=== PATIENT | female | born 1995 | race Two or more races ===

== ENCOUNTER 2018-10-28 05:34 | Emergency (ER) | payer OTHER ==
--- NOTE | 2018-10-28 06:54 | ER Document Report ---
ED General - General Chief Complaint: Cold Symptoms Stated Complaint: COLD SYMPTOMS Time Seen by Provider: 10/28/18 06:11 Notes: Patient is a 23-year-old female that presents to the emergency department for chief complaint of sinus congestion and cold symptoms. Patient states that her symptoms started a few days ago, she has had runny nose, congestion, and some sinus pressure, but denies having any pain. 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 She did have a mild cough associated as well. Denies having any fevers, chills, night sweats, nausea, vomiting, abdominal pain, chest pain or difficulty breathing. Past Medical History: Denies chronic medical conditions Past Surgical History: Denies surgical history Social History: Denies tobacco, alcohol or drug use. Family History: Reviewed and noncontributory for presenting illness Allergies: Reviewed, see documented allergy list. REVIEW OF SYSTEMS: Other than noted above, the 12 point review of systems was reviewed with the patient and were negative, all pertinent findings are included in the HPI. PHYSICAL EXAMINATION: Vital signs reviewed, nursing noted reviewed. GENERAL: Well-appearing, well-nourished and in no acute distress. HEAD: Atraumatic, normocephalic. EYES: Eyes appear normal, sclera anicteric, conjunctiva are normal. ENT: Moist mucous membranes. Mild bilateral nasal turbinate injection, posterior pharynx is unremarkable, TMs appear normal bilaterally. NECK: Normal range of motion, supple without lymphadenopathy LUNGS: Breath sounds clear to auscultation bilaterally and equal. No wheezes rales or rhonchi. HEART: Regular rate and rhythm without murmurs EXTREMITIES: Nontender, good range of motion, no pitting or edema. NEUROLOGICAL: No focal neurological deficits. Moves all extremities spontaneously Motor and sensory grossly intact on exam. PSYCH: Normal mood, normal affect. SKIN: Warm, Dry, normal turgor, no rashes or lesions noted on exposed skin TRAVEL OUTSIDE OF THE [place] IN LAST 30 DAYS: No - Related Data Allergies/Adverse Reactions: No Known Allergies Allergy (Unverified 10/28/18 05:40) Past Medical History - Social History Smoking Status: Never Smoker Family History: Reviewed & Not Pertinent Patient has suicidal ideation: No Patient has homicidal ideation: No Renal/ Medical History: Denies: Hx Peritoneal Dialysis Physical Exam - Vital signs Vitals: Temp Pulse Resp BP Pulse Ox 97.7 F 93 18 119/70 96 10/28/18 05:42 10/28/18 05:42 10/28/18 05:42 10/28/18 05:42 10/28/18 05:42 Course - Re-evaluation Re-evalutation: Patient seen and examined vital signs reviewed. Patient was evaluated and treated as appropriate for the patient's presenting symptoms and complaint, with consideration of any critical or life threatening conditions that may be associated with their obtained history and exam as noted above. Patient appeared well on exam, will discharge her home with a prescription for Flonase, advised [id number] Mucinex or Sudafed, as well and to follow-up with her primary care physician. Plan of care was discussed with the patient at this point, after careful consideration I feel that that patient can be discharged from the emergency department, the patient was educated treatments and reasons to return to the emergency department based on their presumed diagnosis as noted above, they were advised to followup with a primary care physician in 2-3 days. Patient was agreeable to plan of care. *Note is created using voice recognition software and may contain spelling, syntax or grammatical errors. - Vital Signs Vital signs: Temp Pulse Resp BP Pulse Ox 97.5 F 87 16 117/69 100 10/28/18 07:02 10/28/18 07:02 10/28/18 07:02 10/28/18 07:02 10/28/18 07:02 Discharge - Discharge Clinical Impression: URI (upper respiratory infection) Qualifiers: URI type: unspecified URI Qualified Code(s): J06.9 - Acute upper respiratory infection, unspecified Condition: Stable Disposition: HOME, SELF-CARE Instructions: Upper Respiratory Illness ([facility]) Additional Instructions: Please take medications as prescribed, you should take [id number] Sudafed, to help with some of your nasal congestion. Prescriptions: Fluticasone Propionate [Flonase Nasal [place] 50 Mcg/[place] 16 gm] 1 spray NASL Q12 #1 inhaler Forms: Return to Work Referrals: SHAWN SHERMAN MD [ACTIVE STAFF] - Follow up in 3-5 days (or your primary care. )
[2018-10-28 07:04] VITALS: BP 117/69
== END 2018-10-28 07:04 | disposition home or self-care (01) ==
LOC: ER 05:34
DX: J06.9 Acute upper respiratory infection, unspecified (principal); R09.81 Nasal congestion; R09.89 Other specified symptoms and signs involving the circulatory and respiratory systems; R05 Cough; R51 Headache
CPT/HCPCS: 99283

== ENCOUNTER 2018-12-22 22:52 | Emergency (ER) | payer OTHER ==
[2018-12-22] MEDS ORDERED: ONDANSETRON 4 MG TAB.RAPDIS PO ONE (23:51)
--- NOTE | 2018-12-23 00:05 | ER Document Report ---
HPI - HPI Patient complains to provider of: UTI Time Seen by Provider: 12/22/18 23:46 Onset: This morning Onset/Duration: Waxing and waning Quality of pain: Burning Pain Level: 5 Context: Patient presents complaining of hematuria dysuria and frequency that started today with nausea. Patient denies any back pain or fever. Patient denies any vaginal bleeding or discharge. Associated Symptoms: Nausea. denies: Fever, Vomiting Exacerbated by: Denies Relieved by: Denies Similar symptoms previously: Yes Recently seen / treated by doctor: No - ROS ROS below otherwise negative: Yes Systems Reviewed and Negative: Yes All other systems reviewed and negative - CONSTITUTIONAL Constitutional: DENIES: Fever, Chills - NEURO Neurology: DENIES: Headache - GASTROINTESTINAL Gastrointestinal: REPORTS: Abdominal Pain, Nausea. DENIES: Patient vomiting - URINARY Urinary: REPORTS: Dysuria, Frequency - REPRODUCTIVE Reproductive: DENIES: :, Abnormal bleeding / discharge - MUSCULOSKELETAL Musculoskeletal: DENIES: Back Pain - DERM Skin Color: Normal Skin Problems: None Past Medical History - General Information source: Patient - Social History Smoking Status: Never Smoker Frequency of alcohol use: None Drug Abuse: None Occupation: Active duty [employer] Family History: Reviewed & Not Pertinent - Medical History Medical History: Negative Renal/ Medical History: Denies: Hx Peritoneal Dialysis Surgical Hx: Negative Vertical Provider Document - CONSTITUTIONAL Agree With Documented VS: Yes Exam Limitations: No Limitations General Appearance: WD/WN, No Apparent Distress - INFECTION CONTROL TRAVEL OUTSIDE OF THE [place] IN LAST 30 DAYS: No - HEENT HEENT: Atraumatic, Normocephalic - NECK Neck: Normal Inspection, Supple. negative: Lymphadenopathy-Left, Lymphadenopathy-Right - RESPIRATORY Respiratory: Breath Sounds Normal, No Respiratory Distress - CARDIOVASCULAR Cardiovascular: Regular Rate, Regular Rhythm, No Murmur - GI/ABDOMEN Gastrointestinal: Abdomen Soft, Abdomen Tender - Suprapubic, Normal Bowel Sounds - BACK Back: Normal Inspection. negative: CVA Tenderness-Right, CVA Tenderness-Left - MUSCULOSKELETAL/EXTREMETIES Musculoskeletal/Extremeties: BEV HUGGINS - NEURO Level of Consciousness: Awake, Alert, Appropriate Motor/Sensory: No Motor Deficit - DERM Integumentary: Warm, Dry, No Rash Course - Re-evaluation Re-evalutation: 12/23/18 00:46 Patient with UTI, no concern for pyelonephritis or obstructive uropathy. Patient reports nausea is improved at this time after the medication. Discussed worsening symptoms of patient should return immediately for. Patient verbalized understanding agrees with plan of care. - Vital Signs Vital signs: Temp Pulse Resp BP Pulse Ox 98.1 F 86 18 117/70 99 12/22/18 22:58 12/22/18 22:58 12/22/18 22:58 12/22/18 22:58 12/22/18 22:58 - Laboratory Laboratory results interpreted by me: 12/23/18 00:46 Labs- Entire Visit 12/23/18 00:01 Urine Color [place] Urine Appearance CLOUDY Urine pH 7.0 Ur Specific [place] 1.024 Urine Protein 100 H Urine Glucose (UA) NEGATIVE Urine Ketones TRACE H Urine Blood LARGE H Urine Nitrite POSITIVE H Urine Bilirubin NEGATIVE Urine Urobilinogen 4.0 H Ur Leukocyte Esterase SMALL H Urine WBC (Auto) 127 Urine RBC (Auto) >182 Urine Bacteria (Auto) 1+ Squamous Epi Cells Auto 3 U Non-Squamous Epis Auto 3 Urine Mucus (Auto) FEW Urine Ascorbic Acid NEGATIVE Discharge - Discharge Clinical Impression: Nausea UTI (urinary tract infection) Qualifiers: Urinary tract infection type: site unspecified Hematuria presence: with hematuria Qualified Code(s): N39.0 - Urinary tract infection, site not specified Condition: Stable Disposition: HOME, SELF-CARE Instructions: Nausea or Vomiting, Nonspecific ([facility]), Urinary Anesthetic Agent ([facility]), Urinary Tract Infection ([facility]) Additional Instructions: Return immediately for any new or worsening symptoms Followup with your primary care provider, call tomorrow to make a followup appointment Prescriptions: Cephalexin Monohydrate [Keflex 500 mg Capsule] 500 mg PO Q6H 7 Days capsule Ondansetron HCl [Zofran 4 mg Tablet] 1 - 2 tab PO Q6 PRN #10 tablet PRN Reason: Phenazopyridine HCl [Pyridium 200 mg Tablet] 200 mg PO TID #15 tablet Referrals: HEDY BOTELLO [Primary Care Provider] - Follow up as needed [facility] [Provider Group] - Follow up as needed
[2018-12-23 00:37] LABS: APPEARANCE,URINE CLOUDY; BILIRUBIN,URINE NEGATIVE (NEGATIVE); COLOR,URINE AMBER; GLUCOSE, URINE NEGATIVE (NEGATIVE); KETONES,URINE TRACE mg/dL (NEGATIVE); LEUKOCYTE ESTERASE,URINE SMALL (NEGATIVE); NITRITE,URINE POSITIVE (NEGATIVE); PROTEIN,URINE 100 mg/dL (NEGATIVE); URINE SPECIFIC GRAVITY 1.024
[2018-12-23] MEDS ORDERED: LIDOCAINE 1% INJ-PF (10 MG/ML) 30 ML SDV INJ ONE (00:45)
[2018-12-23] MEDS ORDERED: CEFTRIAXONE INJ 1000 MG VIAL IM ONE (00:45)
[2018-12-23 01:08] VITALS: BP 120/73
== END 2018-12-23 01:08 | disposition home or self-care (01) ==
LOC: ER 22:52
DX: N39.0 Urinary tract infection, site not specified (principal); R11.0 Nausea; R10.9 Unspecified abdominal pain
CPT/HCPCS: 99283; 96372; 87086; 87088; 81001; 87186; S0119; J3490; J0696

== ENCOUNTER 2020-11-06 02:44 | Emergency (ER) | payer OTHER ==
[2020-11-06] MEDS ORDERED: ONDANSETRON 4 MG TAB.RAPDIS PO ONE (03:35)
[2020-11-06 05:31] LABS: A TYPE INFLUENZA AG NEGATIVE (NEGATIVE); B INFLUENZA AG NEGATIVE (NEGATIVE)
--- NOTE | 2020-11-06 06:10 | ER Document Report ---
ED Flu Like - General Chief Complaint: Flu Symptoms Stated Complaint: RUNNY NOSE, NAUSEA, COUGH, HEADACHE,POSSIBLE FEVER Time Seen by Provider: 11/06/20 06:09 Primary Care Provider: BHAVIK GARNICA MD [Primary Care Provider] - Follow up as needed Mode of Arrival: Ambulatory Information source: Patient Notes: 11/06/20 03:03 - ED Nursing Note by DARRICKSUNNY Acct Num: [id number] : 1995 Patient Age: 25 Didn't feel well on Friday. Began to feel better on Friday, Friday night woke up feeling nauseous with body aches. Patient took mucinex and tylenol and went to sleep. Woke up not feeling well but felt better by afternoon. Patient has nausea and has taken dayquil today. Reports cough, headache, and runny nose. VS stable no acute distress at this time. MY NOTES 25-year-old female with chief complaint of 5 days of myalgias sore throat cough productive yellow phlegm and rhinorrhea. She also has some mild headache. She reports her son just got over a URI and was diagnosed with a virus not Covid and not influenza. Patient is in the [employer] and needs a note for work and needs a note to rule out Covid and influenza. These are pending at this time for Covid and influenza is negative. TRAVEL OUTSIDE OF THE [place] IN LAST 30 DAYS: No - HPI Onset: Just prior to arrival Timing/Duration: Constant, Better Quality of pain: Achy Severity: Mild Pain Level: 1 CO exposure: No Shortness of breath: Mild Associated symptoms: Body/muscle aches, Productive cough, Headache, Sinus pain/drainage. denies: Earache, Hoarseness, Hurts to breath, Leg swelling, Nausea, Vomiting, Shortness of breath, Slow to respond, Sore throat, Sweating, Weakness - Related Data Allergies/Adverse Reactions: No Known Allergies Allergy (Unverified 10/28/18 05:40) Home Medications: control Past Medical History - General Information source: Patient - Social History Smoking Status: Never Smoker Cigarette use (# per day): No Chew tobacco use (# tins/day): No Smoking Education Provided: No Frequency of alcohol use: None Drug Abuse: None Family History: Reviewed & Not Pertinent Patient has suicidal ideation: No Patient has homicidal ideation: No Renal/ Medical History: Denies: Hx Peritoneal Dialysis Review of Systems - Review of Systems Constitutional: No symptoms reported EENT: No symptoms reported, Nose congestion, Nose discharge. denies: Eye pain, Eye discharge, Blurred vision, Tearing, Double vision, Ear pain, Ear discharge, Nose pain, Sinus pressure, Sinus discharge, Throat pain, Difficulty swallowing, Throat swelling, Mouth pain, Mouth swelling, Dental problem Cardiovascular: No symptoms reported Respiratory: See HPI, Cough Gastrointestinal: No symptoms reported Genitourinary: No symptoms reported Female Genitourinary: No symptoms reported Musculoskeletal: No symptoms reported Skin: No symptoms reported Hematologic/Lymphatic: No symptoms reported Neurological/Psychological: No symptoms reported -: Yes All other systems reviewed and negative Physical Exam - Vital signs Vitals: Temp Pulse Resp BP Pulse Ox 98.1 F 97 17 123/83 100 11/06/20 02:54 11/06/20 02:54 11/06/20 02:54 11/06/20 02:54 11/06/20 02:54 Interpretation: Normal - General General appearance: Appears well, Alert - HEENT Head: Normocephalic, Atraumatic Eyes: Normal Pupils: PERRL Ears: Normal Sinus: Normal Nasal: Normal Mucous membranes: Normal Pharynx: Other - +1 tonsils noninflamed no erythema no injection Neck: Normal - Respiratory Respiratory status: No respiratory distress Chest status: Nontender Breath sounds: Normal Chest palpation: Normal - Cardiovascular Rhythm: Regular Heart sounds: Normal auscultation Murmur: No - Abdominal Inspection: Normal Distension: No distension Bowel sounds: Normal Tenderness: Nontender Organomegaly: No organomegaly - Rectal Hemorrhoids: Other - Deferred - Genitourinary Bimanuel exam: Other - Deferred - Back Back: Normal, Nontender - Extremities General upper extremity: Normal inspection, Nontender, Normal color, Normal ROM, Normal temperature General lower extremity: Normal inspection, Nontender, Normal color, Normal ROM, Normal temperature, Normal weight bearing. No: Violeta's sign - Neurological Neuro grossly intact: Yes Cognition: Normal Orientation: AAOx4 Odalys Coma Scale Eye Opening: Spontaneous Odalys Coma Scale Verbal: Oriented Odalys Coma Scale Motor: Obeys Commands Odalys Coma Scale Total: 15 Speech: Normal Motor strength normal: LUE, RUE, LLE, RLE Sensory: Normal - Psychological Associated symptoms: Normal affect, Normal mood - Skin Skin Temperature: Warm Skin Moisture: Dry Skin Color: Normal Course - Vital Signs Vital signs: Temp Pulse Resp BP Pulse Ox 98.1 F 97 17 123/83 100 11/06/20 02:54 11/06/20 02:54 11/06/20 02:54 11/06/20 02:54 11/06/20 02:54 - Laboratory Results Critical Laboratory Results Reviewed: Yes Attending or Supervising Physician who Reviewed Labs: ALANA GALLARDO JR - Radiology Results Critical Radiology Results Reviewed: No Critical Results Attending or Supervising Physician who Reviewed Radiology: ALANA GALLARDO JR Discharge - Discharge Clinical Impression: URI (upper respiratory infection) Qualifiers: URI type: unspecified URI Qualified Code(s): J06.9 - Acute upper respiratory infection, unspecified Condition: Stable Disposition: HOME, SELF-CARE Additional Instructions: Off work as directed iollow-up with personal doctor return to ER as needed take medicines as directed encourage fluids Prescriptions: Dexamethasone [Decadron 4 Mg Tablet] 4 mg PO DAILY 3 Days #3 tablet Azithromycin [Zithromax 250 mg Tablet] 250 mg PO ASDIR PRN #6 tablet PRN Reason: Forms: Return to Work Referrals: BHAVIK GARNICA MD [Primary Care Provider] - Follow up as needed
[2020-11-06] MEDS ORDERED: AZITHROMYCIN 250 MG TABLET PO ONE (07:12)
[2020-11-06 07:27] VITALS: BP 108/65
== END 2020-11-06 07:35 | disposition home or self-care (01) ==
LOC: ER 02:44
DX: J06.9 Acute upper respiratory infection, unspecified (principal); R11.0 Nausea; R05 Cough; R51.9 Headache, unspecified; M79.10 Myalgia, unspecified site; J02.9 Acute pharyngitis, unspecified; J34.89 Other specified disorders of nose and nasal sinuses; Z79.3 Long term (current) use of hormonal contraceptives; Z20.822 Contact with and (suspected) exposure to COVID-19
CPT/HCPCS: 99283; 87635; 87804; S0119; C9803